=== PATIENT | female | born 1985 | race Caucasian/White ===

== ENCOUNTER 2019-02-05 08:20 | Emergency (ER) | payer OTHER ==
[~2019-02-05] VITALS: Ht 147.3 cm; Wt 65.9 kg
[2019-02-05 09:26] VITALS: BP 114/72
== END 2019-02-05 09:39 | disposition home or self-care (01) ==
LOC: ER 08:21
DX: J06.9 Acute upper respiratory infection, unspecified (principal)
CPT/HCPCS: 99283

== ENCOUNTER 2019-08-14 14:10 | Emergency (ER) | payer OTHER ==
[~2019-08-14] VITALS: Ht 147.3 cm; Wt 63.6 kg
[2019-08-14 14:27] VITALS: BP 107/75
[2019-08-14] MEDS ORDERED: LIDOcaine 5% patch TP STA (14:39)
[2019-08-14] MEDS ORDERED: ketorolac trometh inj. 60 MG/2 ML VIAL IM ONE (14:40)
[2019-08-14] MEDS ORDERED: HYDROcodone/acetaminophen 10/325mg tab PO ONE (14:40)
[2019-08-14] MEDS ORDERED: HYDR-4383 PO (14:59)
== END 2019-08-14 15:22 | disposition home or self-care (01) ==
LOC: ER 14:11
DX: M25.552 Pain in left hip (principal); M54.5 Low back pain; M53.3 Sacrococcygeal disorders, not elsewhere classified; X58.XXXA Exposure to other specified factors, initial encounter; Y93.89 Activity, other specified; Y92.89 Other specified places as the place of occurrence of the external cause; Y99.8 Other external cause status
CPT/HCPCS: 96372; 99283; J1885

== ENCOUNTER 2021-03-04 18:24 | Emergency (ER) | payer BC ==
[~2021-03-04] VITALS: Ht 147.3 cm; Wt 73.6 kg
[~2021-03-04 18:24] MED LIST: HYDR-4383 PO
[2021-03-04] MEDS ORDERED: normal saline 1000ML IV soln IVB STA (18:38)
[2021-03-04] MEDS ORDERED: famotidine/PF 10 mg/ml inj IV ONE (18:40)
[2021-03-04] MEDS ORDERED: diphenhydrAMINE 50 mg/ml inj IV ONE (18:40)
[2021-03-04] MEDS ORDERED: methylPREDNISolone sod succ 125mg/2ml vial IV ONE (18:40)
[2021-03-04] MEDS ORDERED: methylPREDNISolone sod succ 125mg/2ml vial ONE (18:42)
[2021-03-04] MEDS ORDERED: EPIN0.3P3 IM (19:04)
[2021-03-04] MEDS ORDERED: PRED20TA PO (19:04)
[2021-03-04 20:48] VITALS: BP 117/82
== END 2021-03-04 20:45 | disposition home or self-care (01) ==
LOC: ER 18:25
DX: R21 Rash and other nonspecific skin eruption (principal); T78.1XXA Other adverse food reactions, not elsewhere classified, initial encounter; Z79.899 Other long term (current) drug therapy; X58.XXXA Exposure to other specified factors, initial encounter
CPT/HCPCS: 96374; 96375; 99284; J1200; J2930; J3490; J7030

== ENCOUNTER 2021-03-26 18:34 | Emergency (ER) | payer BC ==
[~2021-03-26] VITALS: Ht 157.5 cm; Wt 75.0 kg
[~2021-03-26 18:34] MED LIST changes: +EPIN0.3P3 IM; +PRED20TA PO
[2021-03-26 18:58] VITALS: BP 156/88
[2021-03-26] MEDS ORDERED: PRED20TA PO (19:07)
[2021-03-26] MEDS ORDERED: famotidine 20mg tablet PO ONE (19:10)
[2021-03-26] MEDS ORDERED: dexamethasone 4mg tablet PO ONE (19:10)
== END 2021-03-26 19:18 | disposition home or self-care (01) ==
LOC: ER 18:34
DX: L29.9 Pruritus, unspecified (principal); T45.0X5A Adverse effect of antiallergic and antiemetic drugs, initial encounter; Z79.899 Other long term (current) drug therapy; Y92.89 Other specified places as the place of occurrence of the external cause
CPT/HCPCS: 99283

== ENCOUNTER 2021-05-04 09:21 | Emergency (ER) | payer BC ==
[~2021-05-04] VITALS: Ht 147.3 cm; Wt 72.5 kg
[~2021-05-04 09:21] MED LIST changes: -PRED20TA PO
[2021-05-04] MEDS ORDERED: TOBR5DRO47 EACHEYE (09:33)
--- NOTE | 2021-05-04 09:45 | NUR ---
Disch to home with RX and disch inst. Seen and treated by PA in Triage.
[2021-05-04 09:46] VITALS: BP 113/78
== END 2021-05-04 09:48 | disposition home or self-care (01) ==
LOC: ER 09:22
DX: H10.33 Unspecified acute conjunctivitis, bilateral (principal)
CPT/HCPCS: 99283

== ENCOUNTER 2022-07-16 16:10 | Emergency (ER) | payer BC ==
[~2022-07-16] VITALS: Ht 147.3 cm; Wt 73.6 kg
[~2022-07-16 16:10] MED LIST changes: +TOBR5DRO47 EACHEYE
[2022-07-16 16:16] VITALS: BP 140/99
[2022-07-16 17:17] LABS: URINE HCG NEGATIVE (NEG)
[2022-07-16 17:18] LABS: BASOPHILS % (AUTO) 0.5 % (0-1); EOSINOPHILS # (AUTO) 0.1 X10'3 (0-0.9); HEMATOCRIT 42.1 % (35.0-45.0); HEMOGLOBIN 14.1 g/dl (12.0-16.0); LYMPHOCYTES # (AUTO) 2.1 X10'3 (1.1-4.8); LYMPHOCYTES % (AUTO) 21.4 % (21-51); MEAN CORPUSCULAR HEMOGLOBIN 30.9 PG (27.0-31.0); MEAN CORPUSCULAR HGB CONC 33.6 g/dL (33.0-36.5); MEAN CORPUSCULAR VOLUME 91.9 FL (78-98); MEAN PLATELET VOLUME 9.1 FL (7.4-10.4); MONOCYTES # (AUTO) 0.7 X10'3 (0-0.9); MONOCYTES % (AUTO) 7.2 % (2-12); NEUTROPHILS # (AUTO) 6.9 X10'3 (1.8-7.7); NEUTROPHILS % (AUTO) 69.9 % (42-75); PLATELET COUNT 284 X10'3 (140-440); RED BLOOD COUNT 4.58 X10'6 (4.20-5.60); RED CELL DISTRIBUTION WIDTH 13.8 % (11.5-14.5); WHITE BLOOD COUNT 9.9 X10'3 (4.5-11.0)
[2022-07-16 17:23] LABS: CLARITY,URINE SLIGHTLY CLOUDY (Clear); COLOR,URINE YELLOW (Yellow); GLUCOSE, URINE NEGATIVE (Neg); KETONES,URINE TRACE mg/dl (Neg); LEUKOCYTE ESTERASE ,URINE NEGATIVE (Neg); NITRITES, URINE NEGATIVE (Neg); OCCULT BLOOD,URINE SMALL (Neg); PH,URINE 5.5 (4.8-8.0); PROTEIN,URINE NEGATIVE (Neg); UROBILINOGEN,URINE 0.2 E.U/dL (0.2-1.0)
[2022-07-16 17:25] LABS: UA COLLECTION TYPE CLN CATCH MIDSTREAM
[2022-07-16 17:28] LABS: ALANINE AMINOTRANSFERASE 53 U/L (12-78); ALBUMIN 3.9 G/DL (3.4-5.0); ALBUMIN/GLOBULIN RATIO 0.9 (1.1-1.5); ALKALINE PHOSPHATASE 107 IU/L (46-116); ANION GAP 10 (8-16); ASPARTATE AMINO TRANSFERASE 29 U/L (10-37); BILIRUBIN,TOTAL 0.3 MG/DL (0.1-1.0); BLOOD UREA NITROGEN 8 MG/DL (7-18); BUN/CREATININE RATIO 12.3 (6.6-38.0); CALCIUM 9.2 MG/DL (8.5-10.1); CHLORIDE 102 MMOL/L (99-107); CREATININE 0.65 MG/DL (0.40-0.90); GLUCOSE 93 MG/DL (70-104); LIPASE 67 U/L (73-393); POTASSIUM 3.5 MMOL/L (3.5-5.1); SODIUM 140 MMOL/L (135-145); TOTAL CARBON DIOXIDE 28.1 MMOL/L (24-32); TOTAL PROTEIN 8.2 G/DL (6.4-8.2); eGFR > 90 ML/MIN
[2022-07-16 17:33] LABS: BACTERIA,URINE 2+ /HPF (Neg); SQUAMOUS EPITHELIAL CELL,UR MANY /LPF (FEW); WBC,URINE 0-4 /HPF (0-4)
[2022-07-16] MEDS ORDERED: diphenhydrAMINE 50 mg/ml inj IV ONE (18:00)
[2022-07-16] MEDS ORDERED: proCHLORperazine 10 MG/2 ml inj IV ONE (18:00)
[2022-07-16] MEDS ORDERED: normal saline 1000ml 1,000 ML IV ONE (18:00)
[2022-07-16] MEDS ORDERED: PROC-8 PO (18:14)
--- NOTE | 2022-07-16 18:50 | NUR ---
DRINK PROVIDED FOR PO CHALLENGE
--- NOTE | 2022-07-16 19:09 | NUR ---
PO CHALLENGE PASSED M Addendum: 07/16/22 at 1909 by HENRI PO CHALLENGE PASSED MD MARTINEZ
--- NOTE | 2022-07-16 19:10 | NUR ---
IV DC'D PT BEING DISCHARGED DRESSING APPLIED
== END 2022-07-16 19:13 | disposition home or self-care (01) ==
LOC: ER 16:11
DX: R11.2 Nausea with vomiting, unspecified (principal); F17.200 Nicotine dependence, unspecified, uncomplicated; Z90.49 Acquired absence of other specified parts of digestive tract; Z79.2 Long term (current) use of antibiotics; Z79.899 Other long term (current) drug therapy
CPT/HCPCS: 36415; 80053; 81001; 81025; 83690; 85025; 96361; 96374; 96375; 99284; J0780; J1200; J7030

== ENCOUNTER 2022-07-24 10:45 | Emergency (ER) | payer BC ==
[~2022-07-24] VITALS: Ht 147.3 cm; Wt 73.6 kg
[~2022-07-24 10:45] MED LIST changes: +PROC-8 PO
[2022-07-24 11:42] LABS: CLARITY,URINE SLIGHTLY CLOUDY (Clear); GLUCOSE, URINE NEGATIVE (Neg); KETONES,URINE NEGATIVE (Neg); LEUKOCYTE ESTERASE ,URINE NEGATIVE (Neg); NITRITES, URINE NEGATIVE (Neg); OCCULT BLOOD,URINE TRACE-INTACT (Neg); PROTEIN,URINE NEGATIVE (Neg); UROBILINOGEN,URINE 0.2 E.U/dL (0.2-1.0)
[2022-07-24 11:46] LABS: COLOR,URINE STRAW (Yellow); UA COLLECTION TYPE CLN CATCH MIDSTREAM
[2022-07-24 11:49] LABS: URINE HCG NEGATIVE (NEG)
[2022-07-24 11:56] LABS: EOSINOPHILS # (AUTO) 0.1 X10'3 (0-0.9); MONOCYTES # (AUTO) 0.7 X10'3 (0-0.9)
[2022-07-24 11:58] LABS: BASOPHILS # (AUTO) 0.1 X10'3 (0-0.2); BASOPHILS % (AUTO) 0.8 % (0-1); EOSINOPHILS % (AUTO) 0.9 % (0-6); HEMATOCRIT 41.8 % (35.0-45.0); HEMOGLOBIN 13.9 g/dl (12.0-16.0); LYMPHOCYTES # (AUTO) 1.8 X10'3 (1.1-4.8); LYMPHOCYTES % (AUTO) 24.6 % (21-51); MEAN CORPUSCULAR HEMOGLOBIN 30.5 PG (27.0-31.0); MEAN CORPUSCULAR HGB CONC 33.2 g/dL (33.0-36.5); MEAN CORPUSCULAR VOLUME 91.9 FL (78-98); MEAN PLATELET VOLUME 8.9 FL (7.4-10.4); MONOCYTES % (AUTO) 10.1 % (2-12); NEUTROPHILS # (AUTO) 4.7 X10'3 (1.8-7.7); NEUTROPHILS % (AUTO) 63.6 % (42-75); PLATELET COUNT 313 X10'3 (140-440); RED BLOOD COUNT 4.55 X10'6 (4.20-5.60); RED CELL DISTRIBUTION WIDTH 13.9 % (11.5-14.5); WHITE BLOOD COUNT 7.4 X10'3 (4.5-11.0)
[2022-07-24 12:03] LABS: BACTERIA,URINE 2+ /HPF (Neg); RBC,URINE 0-2 /HPF (0-2); SQUAMOUS EPITHELIAL CELL,UR MANY /LPF (FEW); WBC,URINE 0-4 /HPF (0-4)
[2022-07-24 12:07] LABS: ALANINE AMINOTRANSFERASE 45 U/L (12-78); ALBUMIN 3.8 G/DL (3.4-5.0); ALBUMIN/GLOBULIN RATIO 0.9 (1.1-1.5); ALKALINE PHOSPHATASE 95 IU/L (46-116); AMYLASE 32 U/L (25-115); ANION GAP 6 (8-16); ASPARTATE AMINO TRANSFERASE 26 U/L (10-37); BILIRUBIN,TOTAL 0.4 MG/DL (0.1-1.0); BLOOD UREA NITROGEN 5 MG/DL (7-18); BUN/CREATININE RATIO 8.1 (6.6-38.0); CALCIUM 9.3 MG/DL (8.5-10.1); CHLORIDE 105 MMOL/L (99-107); CREATININE 0.62 MG/DL (0.40-0.90); GLUCOSE 89 MG/DL (70-104); LIPASE 81 U/L (73-393); POTASSIUM 4.1 MMOL/L (3.5-5.1); SODIUM 139 MMOL/L (135-145); TOTAL CARBON DIOXIDE 27.7 MMOL/L (24-32); eGFR > 90 ML/MIN
[2022-07-24] MEDS ORDERED: normal saline 1000ml 1,000 ML IV ONE (14:05)
[2022-07-24 14:46] VITALS: BP 115/78
== END 2022-07-24 15:34 | disposition home or self-care (01) ==
LOC: ER 10:46
DX: R10.31 Right lower quadrant pain (principal); Z90.49 Acquired absence of other specified parts of digestive tract
CPT/HCPCS: 36415; 74176; 80053; 81001; 81025; 82150; 83690; 85025; 93005; 96360; 99285; J7030